=== PATIENT | female | born 1960 | race Caucasian/White ===

== ENCOUNTER 2017-11-18 16:49 | Emergency (ER) | payer OTHER ==
[~2017-11-18] VITALS: Ht 172.7 cm; Wt 99.0 kg
[~2017-11-18 16:49] MED LIST: CHOL50006 PO; VIST50CA PO
[2017-11-18 16:52] VITALS: BP 181/81; PULSE 76; RESP 18; TEMP 98.4; O2SAT 97
[2017-11-18] MEDS ORDERED: SODIUM CHLOR 0.9% 1000 ML INJ 1,000 ML IV SCH (17:34)
[2017-11-18 17:35] VITALS: RESP 16; O2SAT 98
[2017-11-18] MEDS ORDERED: ONDANSETRON HCL 4 MG/2 ML VIAL IVP ONE (17:45)
[2017-11-18] MEDS ORDERED: ZOFR8TAB PO (17:45)
[2017-11-18] MEDS ORDERED: LORazepam 2 MG/ML VIAL IV PUSH ONE (17:45)
[2017-11-18] MEDS ORDERED: PROM12.54 PO (17:45)
[2017-11-18] MEDS ORDERED: SODIUM CHLORIDE 0.9% FLUSH 10 ML FLUSH IV FLUSH PRN (17:45)
[2017-11-18 18:08] LABS: AUTOMATED NEUTROPHIL # 4.9 TH/MM3 (1.8-7.7); BASOPHIL # 0.2 TH/MM3 (0-0.2); BASOPHIL % 2.5 % (0.0-2.0); EOSINOPHIL # 0.1 TH/MM3 (0-0.4); EOSINOPHIL % 0.8 % (0.0-4.0); HEMATOCRIT 42.8 % (35.0-46.0); HEMOGLOBIN 14.4 GM/DL (11.6-15.3); LYMPH % 18.8 % (9.0-44.0); LYMPHOCYTE # 1.3 TH/MM3 (1.0-4.8); MEAN CELL VOLUME 91.2 FL (80.0-100.0); MEAN CORPUSCULAR HEMOGLOBIN 30.6 PG (27.0-34.0); MEAN CORPUSCULAR HGB CONC 33.5 % (32.0-36.0); MONO % 5.4 % (0.0-8.0); MONOCYTE # 0.4 TH/MM3 (0-0.9); NEUT % 72.5 % (16.0-70.0); PLATELET COUNT 251 TH/MM3 (150-450); RED CELL DISTRIBUTION WIDTH 12.1 % (11.6-17.2); WHITE BLOOD COUNT 6.9 TH/MM3 (4.0-11.0)
[2017-11-18 18:16] LABS: CHLORIDE 107 MEQ/L (98-107); SODIUM (NA) 140 MEQ/L (136-145)
[2017-11-18 18:19] LABS: CALCIUM 9.1 MG/DL (8.5-10.1)
[2017-11-18 18:20] LABS: ALBUMIN 3.6 GM/DL (3.4-5.0); BICARBONATE 23.7 MEQ/L (21.0-32.0); BLOOD UREA NITROGEN 13 MG/DL (7-18); GLUCOSE,RANDOM 94 MG/DL (74-106)
[2017-11-18 18:22] LABS: ALT (GPT) 29 U/L (10-53); AST (GOT) 21 U/L (15-37)
[2017-11-18 18:23] LABS: BILIRUBIN, URINE NEG (NEG); BLOOD, URINE TRACE (NEG); GLUCOSE,URINE NEG (NEG); KETONE, URINE NEG (NEG); NITRITE,URINE NEG (NEG); PH, URINE 5.5 (5.0-8.5); URINE COLOR YELLOW (YELLW/STRAW); URINE LEUKOCYTE ESTERASE NEG (NEG)
[2017-11-18 18:23] LABS: CREATININE 0.81 MG/DL (0.50-1.00); GLOMERULAR FILTRATION RATE 73 ML/MIN (>89)
[2017-11-18 18:24] LABS: TOTAL BILIRUBIN ADULT 0.4 MG/DL (0.2-1.0); TOTAL PROTEIN 7.6 GM/DL (6.4-8.2)
[2017-11-18 18:25] LABS: ALKALINE PHOSPHATASE 75 U/L (45-117)
[2017-11-18 18:29] LABS: WBC, URINE 0-2 /hpf (0-5)
[2017-11-18 18:30] LABS: SQUAMOUS EPITHELIAL CELL URINE 0-5 /hpf (0-5)
[2017-11-18 19:09] VITALS: BP 131/67; PULSE 66; RESP 16; O2SAT 100
--- NOTE | 2017-11-18 19:29 | PD ---
HPI Chief Complaint: GI Complaint Time Seen by Provider: 17:04 Travel History International Travel<30 days: No Contact w/Intl Traveler<30days: No Traveled to known affect area: No History of Present Illness HPI 57-year-old female complains of nausea for 3 weeks. She went to an urgent care center 2 weeks ago and was prescribed Zofran. It is marginally beneficial. She reports calling Dr. Morgan yesterday and she was called in a prescription for Phenergan. She took Phenergan last night again with no significant benefit. In the ER she describes a state of anxiety of moderate severity at least. Her chest pressure is breath. No fever. Patient also describes a sensation of lightheadedness without shortness of breath or chest pain. No urinary complaint. No vaginal bleeding or discharge. PFSH Past Medical History Blood Disorders: No Anxiety: Yes Depression: Yes Heart Rhythm Problems: No Cancer: No Cardiovascular Problems: Yes High Cholesterol: No Chest Pain: Yes (evaluated, negative) Congestive Heart Failure: No Diabetes: No Diminished Hearing: No Endocrine: No Gastrointestinal Disorders: Yes (ACID REFLUX, GALLSTONES) GERD: Yes Genitourinary: No Hepatitis: No Hiatal Hernia: Yes Hypertension: No (HX of HYPERTENSION, Denies at present) Immune Disorder: No Musculoskeletal: No Neurologic: No Psychiatric: Yes Reproductive: No Respiratory: No Integumentary: Yes (PRECANCEROUS) Immunizations Current: No Thyroid Disease: No Tetanus Vaccination: > 5 Years Influenza Vaccination: No ?: Not Menopausal: Yes : 0 Past Surgical History AICD: No Cholecystectomy: Yes Genitourinary Surgery: Yes (PERIANAL FISTULA 06/2006) Joint Replacement: No Pacemaker: No Other Surgery: Yes Social History Alcohol Use: Yes (SOCIALLY-beer) Tobacco Use: No Substance Use: No Allergies-Medications (Allergen,Severity, Reaction): Coded Allergies: prednisone (Unverified Adverse Reaction, Severe, AGITATION, HYSTERICAL, HEART RACING, 11/18/17) Reported Meds & Prescriptions Reported Meds & Active Scripts Active Ativan (Lorazepam) 0.5 Mg Tab 0.5 Mg PO Q8H PRN Reported Promethazine (Promethazine HCl) 12.5 Mg Tab 12.5 Mg PO Q6H PRN Zofran (Ondansetron HCl) 8 Mg Tab 8 Mg PO Q8HR Review of Systems Except as stated in HPI: all other systems reviewed are Neg General / Constitutional: No: Fever HENT: Positive: Lightheadedness, No: Vertigo Physical Exam Narrative GENERAL: 57-year-old female pleasant well-nourished well-developed mildly anxious Vital Signs Date Time Temp Pulse Resp B/P (MAP) Pulse Ox O2 Delivery O2 Flow Rate FiO2 11/18/17 19:09 66 16 131/67 (88) 100 Room Air 11/18/17 17:35 16 98 Room Air 11/18/17 16:52 98.4 76 18 181/81 (114) 97 SKIN: Warm and dry. HEAD: Atraumatic. Normocephalic. EYES: Pupils equal and round. No scleral icterus. No injection or drainage. ENT: No nasal bleeding or discharge. Mucous membranes pink and moist. NECK: Trachea midline. No JVD. CARDIOVASCULAR: Regular rate and rhythm. RESPIRATORY: No accessory muscle use. Clear to auscultation. Breath sounds equal bilaterally. GASTROINTESTINAL: Abdomen soft, non-tender, nondistended. Hepatic and splenic margins not palpable. MUSCULOSKELETAL: Extremities without clubbing, cyanosis, or edema. No obvious deformities. NEUROLOGICAL: Awake and alert. No obvious cranial nerve deficits. Motor grossly within normal limits. Five out of 5 muscle strength in the arms and legs. Normal speech. PSYCHIATRIC: Appropriate mood and affect; insight and judgment normal. Data Data Last Documented VS Vital Signs Date Time Temp Pulse Resp B/P (MAP) Pulse Ox O2 Delivery O2 Flow Rate FiO2 11/18/17 19:09 66 16 131/67 (88) 100 Room Air 11/18/17 16:52 98.4 Orders Orders Complete Blood Count With Diff (11/18/17 17:34) Comprehensive Metabolic Panel (11/18/17 17:34) Lipase (11/18/17 17:34) Urinalysis - C+S If Indicated (11/18/17 17:34) Iv Access Insert/Monitor (11/18/17 17:34) Ecg Monitoring (11/18/17 17:34) Oximetry (11/18/17 17:34) Ondansetron Inj (Zofran Inj) (11/18/17 17:45) Sodium Chlor 0.9% 1000 Ml Inj (Ns 1000 M (11/18/17 17:34) Sodium Chloride 0.9% Flush (Ns Flush) (11/18/17 17:45) Electrocardiogram (11/18/17 17:34) Ed Urine Pregnancytest Poc (11/18/17 17:34) Lorazepam Inj (Ativan Inj) (11/18/17 17:45) Ed Discharge Order (11/18/17 19:30) Labs Laboratory Tests Test 11/18/17 17:55 11/18/17 18:05 White Blood Count 6.9 TH/MM3 Red Blood Count 4.70 MIL/MM3 Hemoglobin 14.4 GM/DL Hematocrit 42.8 % Mean Corpuscular Volume 91.2 FL Mean Corpuscular Hemoglobin 30.6 PG Mean Corpuscular Hemoglobin Concent 33.5 % Red Cell Distribution Width 12.1 % Platelet Count 251 TH/MM3 Mean Platelet Volume 8.0 FL Neutrophils (%) (Auto) 72.5 % Lymphocytes (%) (Auto) 18.8 % Monocytes (%) (Auto) 5.4 % Eosinophils (%) (Auto) 0.8 % Basophils (%) (Auto) 2.5 % Neutrophils # (Auto) 4.9 TH/MM3 Lymphocytes # (Auto) 1.3 TH/MM3 Monocytes # (Auto) 0.4 TH/MM3 Eosinophils # (Auto) 0.1 TH/MM3 Basophils # (Auto) 0.2 TH/MM3 CBC Comment DIFF FINAL Differential Comment Blood Urea Nitrogen 13 MG/DL Creatinine 0.81 MG/DL Random Glucose 94 MG/DL Total Protein 7.6 GM/DL Albumin 3.6 GM/DL Calcium Level 9.1 MG/DL Alkaline Phosphatase 75 U/L Aspartate Amino Transf (AST/SGOT) 21 U/L Alanine Aminotransferase (ALT/SGPT) 29 U/L Total Bilirubin 0.4 MG/DL Sodium Level 140 MEQ/L Potassium Level 4.3 MEQ/L Chloride Level 107 MEQ/L Carbon Dioxide Level 23.7 MEQ/L Anion Gap 9 MEQ/L Estimat Glomerular Filtration Rate 73 ML/MIN Lipase 289 U/L Urine Color YELLOW Urine Turbidity CLEAR Urine pH 5.5 Urine Specific [place] 1.015 Urine Protein NEG mg/dL Urine Glucose (UA) NEG mg/dL Urine Ketones NEG mg/dL Urine Occult Blood TRACE Urine Nitrite NEG Urine Bilirubin NEG Urine Urobilinogen 0.2 MG/DL Urine Leukocyte Esterase NEG Urine WBC 0-2 /hpf Urine Squamous Epithelial Cells 0-5 /hpf Microscopic Urinalysis Comment CULT NOT INDICATED MDM Medical Decision Making Medical Screen Exam Complete: Yes Emergency Medical Condition: Yes Medical Record Reviewed: Yes Differential Diagnosis Electrolyte imbalance, UTI, anemia, anxiety, arrhythmia Narrative Course CBC & BMP Diagram 11/18/17 17:55 Total Protein 7.6, Albumin 3.6, Calcium Level 9.1, Alkaline Phosphatase 75, Aspartate Amino Transf (AST/SGOT) 21, Alanine Aminotransferase (ALT/SGPT) 29, Total Bilirubin 0.4 Patient received Ativan and Zofran. Symptoms improved significantly here, mainly anxiety. Follow-up plan discussed. Diagnosis Primary Impression: Nausea Additional Impressions: Lightheadedness Anxiety Referrals: Nunu Morgan MD Primary Care Physician Med/Other Pt SpecificInfo: Prescription(s) given Scripts Lorazepam (Ativan) 0.5 Mg Tab 0.5 MG PO Q8H Y for ANXIETY AND/OR AGITATION, #15 TAB 0 Refills Prov: Andrzej Gutierrez MD 11/18/17 Disposition: 01 DISCHARGE HOME Condition: Stable Andrzej Gutierrez MD Nov 18, 2017 19:29
[2017-11-18] MEDS ORDERED: LORA-392 PO (19:31)
--- NOTE | 2017-11-19 05:38 | EKG ---
Date Performed: 11/18/2017 Time Performed: 17:44:55 PTAGE: 57 years EKG: Sinus rhythm NORMAL ECG PREVIOUS TRACING : 04/02/2016 09.05 No significant change from previous tracing noted. DOCTOR: Laron Singleton Interpretating Date/Time 11/19/2017 05:37:41
== END 2017-11-18 20:11 | disposition home or self-care (01) ==
LOC: PHED 16:49
DX: R11.0 Nausea (principal); R42 Dizziness and giddiness; F41.8 Other specified anxiety disorders; K21.9 Gastro-esophageal reflux disease without esophagitis
CPT/HCPCS: 80053; 81001; 83690; 84703; 85025; 93005; 96361; 96374; 96375; 99284; J2060; J2405; J7030